=== PATIENT | male | born 1970 | race Caucasian/White ===

== ENCOUNTER → 2019-09-11 | Outpatient (CLI) | payer OTHER ==
--- NOTE | 2019-09-11 14:59 | RAD ---
EXAM: Thoracic spine, 3 views; lumbar spine, 2 views. HISTORY: Scoliosis. Non-Hodgkin's lymphoma. COMPARISON: None. FINDINGS: Thoracic spine: 3 views of the thoracic spine there are obtained. There is minimal thoracic dextroscoliosis, measuring approximate 5 degrees at T6-T7. There is slight increased thoracic kyphosis. There is degenerative endplate remodeling and Schmorl's node formation at multiple thoracic levels. No fracture is seen. Lumbar spine: 2 views of the lumbar spine are obtained. There is degenerative endplate remodeling with disc space narrowing and vacuum phenomenon at L5-S1. There is facet arthropathy at the lower lumbar levels. There are suspected pars defects at L3-L4 and possibly L4-L5. There are surgical clips overlying the abdomen. IMPRESSION: 1. Multilevel degenerative change of the thoracic and lumbar spine, primarily at the lumbosacral junction. 2. Minimal thoracic dextroscoliosis. 3. Possible pars defects at L3-L4 and L4-L5. Electronically signed by: Maira Diaz MD (09/11/2019 2:56 PM) [facility]
== END ==
LOC: RAD 09:57
PROVIDERS: ATTEND Surgery
DX: M47.815 Spondylosis without myelopathy or radiculopathy, thoracolumbar region (principal); M47.817 Spondylosis without myelopathy or radiculopathy, lumbosacral region; M48.07 Spinal stenosis, lumbosacral region; M40.294 Other kyphosis, thoracic region; M12.88 Other specific arthropathies, not elsewhere classified, other specified site; G89.29 Other chronic pain
CPT/HCPCS: 72020; 72100